=== PATIENT | male | born 1965 | race Asian ===

== ENCOUNTER 2023-11-20 07:57 | Day surgery (SDC) | payer MEDICAID, OTHER ==
[~2023-11-20] VITALS: Ht 170.2 cm; Wt 104.3 kg
[2023-11-20] MEDS ORDERED: MEPERIDINE 100 MG INJ. 100 MG/ML VIAL ONE (08:12)
[2023-11-20] MEDS ORDERED: MIDAZOLAM HCL 5 MG/5 ML VIAL ONE (08:13)
[2023-11-20 12:24] VITALS: O2SAT 96
[2023-11-20 13:24] VITALS: BP_SYST 117; PULSE 72; RESP 14
== END 2023-11-20 11:32 | disposition home or self-care (01) ==
LOC: SDS 07:57 → SMU 08:05 → SDS 11:32
PROVIDERS: ATTEND Internal Medicine
DX: Z12.11 Encounter for screening for malignant neoplasm of colon (principal); D12.4 Benign neoplasm of descending colon; K64.4 Residual hemorrhoidal skin tags; K64.8 Other hemorrhoids; I10 Essential (primary) hypertension; E11.9 Type 2 diabetes mellitus without complications; Z79.82 Long term (current) use of aspirin; Z79.84 Long term (current) use of oral hypoglycemic drugs; Z79.899 Other long term (current) drug therapy
CPT/HCPCS: 45385; 99152; 82948; 88305; 99153; G0378; J2250; J2175